=== PATIENT | female | born 1980 | race African-American/Black ===

== ENCOUNTER 2017-05-02 12:10 | Emergency (ER) | payer OTHER ==
[~2017-05-02] VITALS: Ht 165.1 cm; Wt 117.0 kg
[~2017-05-02 12:10] MED LIST: ACTOS15 MG PO; ACTOS30 MG PO; BYETTA10 SC; BYETTA5 MCG SC; HUMULIN R1 M1 SC; INSULIN SY0.5 MG/38 SC; LANTUS100 MG/ML SC; LEVEMIR FLEXPEN SC; LISINOPRIL10 MG PO; METFORMIN1000 MG PO; METFORMIN500 MG PO; NOVOLOG MIX100 U/ML SC; PEN NEEDLES31 GX6MM SC; TUBERSOL5 MG/0.1 M ID; ULTRAM50 M1 PO; VICTOZA18 MG/3 ML SC
[2017-05-02 13:00] LABS: HEMATOCRIT 37.1 % (37.0-47.0); HEMOGLOBIN 12.8 g/dl (12.0-16.0); IMMATURE GRANULOCYTES 0.3 % (0.0-1.0); MEAN CELL VOLUME 78.3 fL CALC (80.0-100.0); MEAN CORPUSCULAR HGB CONC 34.5 g/L CALC (32.0-36.0); NEUT# 5.63 thou/uL (2.00-7.15); RED BLOOD COUNT 4.74 mill/uL (4.20-5.60); RED CELL DISTRI WIDTH 14.2 % (11.5-15.5)
[2017-05-02 13:11] LABS: ALBUMIN 3.8 g/dL (3.2-5.0); ALKALINE PHOSPHATASE 84 u/l (38-126); ANION GAP 13 (6-22 (CALC)); BILIRUBIN, TOTAL 0.6 mg/dL (0.0-1.4); BUN 6 mg/dL (7-17); BUN/CREATININE RATIO 10 (12-20 (CALC)); CALCIUM 8.7 mg/dL (8.4-10.2); CARBON DIOXIDE 27 mmol/l (22-30); CHLORIDE 97 mmol/l (95-108); CREATININE 0.6 mg/dL (0.5-1.0); GFR > 60 ML/MIN (>=60 (CALC)); GFR FOR AFR.AMER. > 60 ML/MIN (>=60 (CALC)); POTASSIUM 4.1 mmol/l (3.5-5.1); SGOT/AST 25 u/l (14-36); SGPT/ALT 35 u/l (9-52); SODIUM 133 mmol/l (137-146)
[2017-05-02 13:18] LABS: GLUCOSE 464 mg/dL (65-105)
[2017-05-02] MEDS ORDERED: LANTUS100 UNIT/M SC (14:01)
[2017-05-02] MEDS ORDERED: METFORMIN1000 MG PO (14:01)
[2017-05-02] MEDS ORDERED: LISINOPRIL10 MG PO (14:01)
[2017-05-02 14:16] VITALS: BP 124/85
== END 2017-05-02 14:20 | disposition home or self-care (01) | DRG 639 ==
LOC: ED 12:10 → ED-I 12:42 → ED 12:42 → ED-I 13:13 → ED 14:20
PROVIDERS: Emergency Medicine
DX: E11.65 Type 2 diabetes mellitus with hyperglycemia (principal); Z91.14 Patient's other noncompliance with medication regimen; Z79.4 Long term (current) use of insulin; Z79.84 Long term (current) use of oral hypoglycemic drugs

== ENCOUNTER 2018-08-10 10:48 | Emergency (ER) | payer OTHER ==
[~2018-08-10] VITALS: Ht 165.1 cm; Wt 114.0 kg
[~2018-08-10 10:48] MED LIST changes: +LANTUS100 UNIT/M SC
[2018-08-10] MEDS ORDERED: LISINOPRIL5 MG PO (11:08)
[2018-08-10] MEDS ORDERED: NOVOLOG100 UNIT/M SC (11:08)
[2018-08-10] MEDS ORDERED: LANTUS100 UNIT/M SC (11:09)
[2018-08-10 11:15] LABS: HEMATOCRIT 34.9 % (37.0-47.0); HEMOGLOBIN 11.9 g/dl (12.0-16.0); IMMATURE GRANULOCYTES 0.3 % (0.0-5.0); MEAN CORPUSCULAR HGB 27.3 pG CALC (26.0-32.0); MEAN CORPUSCULAR HGB CONC 34.1 g/L CALC (32.0-36.0); NEUT# 4.68 thou/uL (2.00-7.15); RED BLOOD COUNT 4.36 mill/uL (4.20-5.60); RED CELL DISTRI WIDTH 14.6 % (11.5-15.5)
[2018-08-10 11:31] LABS: ALBUMIN 3.7 g/dL (3.2-5.0); ALKALINE PHOSPHATASE 64 u/l (38-126); ANION GAP 11 (6-22 (CALC)); BILIRUBIN, TOTAL 0.7 mg/dL (0.0-1.4); BUN 12 mg/dL (7-17); BUN/CREATININE RATIO 17 (12-20 (CALC)); CARBON DIOXIDE 29 mmol/l (22-30); CHLORIDE 103 mmol/l (95-108); CREATININE 0.7 mg/dL (0.5-1.0); GFR > 60 ML/MIN (>=60 (CALC)); GFR FOR AFR.AMER. > 60 ML/MIN (>=60 (CALC)); POTASSIUM 4.6 mmol/l (3.5-5.1); SGOT/AST 20 u/l (14-36); SODIUM 139 mmol/l (137-146); TOTAL PROTEIN 7.2 g/dL (6.3-8.2)
[2018-08-10 12:17] LABS: URINE BILIRUBIN - DIPSTICK NEGATIVE (NEGATIVE); URINE BLOOD DIPSTICK NEGATIVE (NEGATIVE); URINE COLOR YELLOW; URINE GLUCOSE - DIPSTICK NEGATIVE (NEGATIVE); URINE KETONE NEGATIVE (NEGATIVE); URINE NITRITE - DIPSTICK NEGATIVE (Negative); URINE PROTEIN - DIPSTICK NEGATIVE (NEG-TRACE); URINE SPECIFIC GRAVITY 1.015
[2018-08-10 12:18] LABS: URINE CLARITY SL CLOUDY; URINE LEUK ESTERASE SMALL (NEGATIVE)
[2018-08-10 12:19] LABS: URINE BACTERIA FEW hpf; URINE EPITHELIAL CELLS FEW EPI/hpf (0-FEW)
[2018-08-10 12:20] LABS: BARBITURATES NEGATIVE (NEGATIVE); COCAINE NEGATIVE (NEGATIVE); METHADONE NEGATIVE (NEGATIVE); OXCYCODONE NEGATIVE (NEGATIVE); TETRAHYDROCANNABIONOL NEGATIVE (NEGATIVE); TRICYLIC ANTIDEPRESSANTS NEGATIVE (NEGATIVE)
[2018-08-10] MEDS ORDERED: FLEXERIL PO (12:25)
[2018-08-10] MEDS ORDERED: ULTRAM50 MG PO (12:25)
[2018-08-10] MEDS ORDERED: TORADOL PO (12:25)
[2018-08-10 12:31] VITALS: BP 133/85
== END 2018-08-10 12:40 | disposition home or self-care (01) ==
LOC: ED 10:48
PROVIDERS: Emergency Medicine
DX: M47.22 Other spondylosis with radiculopathy, cervical region (principal); M79.602 Pain in left arm; R20.2 Paresthesia of skin

== ENCOUNTER 2019-08-18 23:38 | Emergency (ER) | payer OTHER ==
[~2019-08-18] VITALS: Ht 165.1 cm; Wt 118.0 kg
[~2019-08-18 23:38] MED LIST changes: +FLEXERIL PO; +LISINOPRIL5 MG PO; +NOVOLOG100 UNIT/M SC; +TORADOL PO; +ULTRAM50 MG PO
[2019-08-19] MEDS ORDERED: CORTISPORIN OTI10 M2 AD (00:07)
[2019-08-19 01:18] VITALS: BP 145/85
== END 2019-08-19 01:18 | disposition home or self-care (01) ==
LOC: ED 23:38
DX: H60.91 Unspecified otitis externa, right ear (principal); E11.9 Type 2 diabetes mellitus without complications; H92.01 Otalgia, right ear; Z79.4 Long term (current) use of insulin

== ENCOUNTER 2020-11-16 15:27 | Inpatient (IN) | payer OTHER ==
[~2020-11-16] VITALS: Ht 165.1 cm; Wt 108.0 kg
[~2020-11-16 15:27] MED LIST changes: +CORTISPORIN OTI10 M2 AD
[2020-11-16 16:02] LABS: HEMATOCRIT 29.7 % (37.0-47.0); HEMOGLOBIN 8.9 g/dl (12.0-16.0); IMMATURE GRANULOCYTES 0.3 % (0.0-5.0); MEAN CELL VOLUME 62.3 fL CALC (80.0-100.0); MEAN CORPUSCULAR HGB 18.7 pG CALC (26.0-32.0); NEUT# 11.58 thou/uL (2.00-7.15); RED BLOOD COUNT 4.77 mill/uL (4.20-5.60); RED CELL DISTRI WIDTH 20.2 % (11.5-15.5)
[2020-11-16 16:23] LABS: ANION GAP 12 (6-22 (CALC)); BUN 11 mg/dL (7-17); BUN/CREATININE RATIO 14 (12-20 (CALC)); CARBON DIOXIDE 28 mmol/l (22-30); CHLORIDE 93 mmol/l (95-108); CREATININE 0.8 mg/dL (0.5-1.0); GFR > 60 ML/MIN (>=60 (CALC)); GFR FOR AFR.AMER. > 60 ML/MIN (>=60 (CALC)); POTASSIUM 3.9 mmol/l (3.5-5.1)
[2020-11-16 16:27] LABS: SODIUM 129 mmol/l (137-146)
[2020-11-16 21:43] VITALS: BP 140/89
[2020-11-17 04:30] VITALS: BP 135/90
[2020-11-17 05:10] LABS: HEMATOCRIT 26.1 % (37.0-47.0); HEMOGLOBIN 7.9 g/dl (12.0-16.0); MEAN CELL VOLUME 62.1 fL CALC (80.0-100.0); MEAN CORPUSCULAR HGB 18.8 pG CALC (26.0-32.0); MEAN CORPUSCULAR HGB CONC 30.3 g/dL CAL (32.0-36.0); RED CELL DISTRI WIDTH 19.9 % (11.5-15.5)
[2020-11-17 05:14] LABS: PLATELET COUNT 507 thou/uL (130-400)
[2020-11-17 05:35] LABS: ANION GAP 10 (6-22 (CALC)); BUN 7 mg/dL (7-17); BUN/CREATININE RATIO 12 (12-20 (CALC)); CARBON DIOXIDE 25 mmol/l (22-30); CHLORIDE 98 mmol/l (95-108); CREATININE 0.5 mg/dL (0.5-1.0); GFR > 60 ML/MIN (>=60 (CALC)); GFR FOR AFR.AMER. > 60 ML/MIN (>=60 (CALC)); MAGNESIUM 1.9 mg/dL (1.6-2.3); POTASSIUM 4.3 mmol/l (3.5-5.1); SODIUM 129 mmol/l (137-146)
[2020-11-17 07:47] VITALS: BP 131/77
[2020-11-17 15:00] VITALS: BP 113/76
[2020-11-17 20:00] VITALS: BP 112/65
[2020-11-18 04:00] VITALS: BP 112/71; BP 161/86
[2020-11-18 05:23] LABS: ANION GAP 6 (6-22 (CALC)); BUN 2 mg/dL (7-17); BUN/CREATININE RATIO 4 (12-20 (CALC)); CARBON DIOXIDE 27 mmol/l (22-30); CHLORIDE 104 mmol/l (95-108); CREATININE 0.5 mg/dL (0.5-1.0); GFR > 60 ML/MIN (>=60 (CALC)); GFR FOR AFR.AMER. > 60 ML/MIN (>=60 (CALC)); POTASSIUM 3.7 mmol/l (3.5-5.1); SODIUM 133 mmol/l (137-146)
[2020-11-18 05:48] LABS: HEMATOCRIT 25.1 % (37.0-47.0); HEMOGLOBIN 7.4 g/dl (12.0-16.0); MEAN CELL VOLUME 62.4 fL CALC (80.0-100.0); MEAN CORPUSCULAR HGB 18.4 pG CALC (26.0-32.0); MEAN CORPUSCULAR HGB CONC 29.5 g/dL CAL (32.0-36.0); RED BLOOD COUNT 4.02 mill/uL (4.20-5.60); RED CELL DISTRI WIDTH 20.3 % (11.5-15.5)
[2020-11-18 06:45] VITALS: BP 140/87
[2020-11-18 15:22] VITALS: BP 131/85
[2020-11-18 20:58] VITALS: BP 121/79
[2020-11-19 05:02] VITALS: BP 122/77
[2020-11-19 08:30] VITALS: BP 120/82
[2020-11-19 15:28] VITALS: BP 127/80
[2020-11-19 19:36] VITALS: BP 127/85
[2020-11-19 23:00] VITALS: BP 128/66
[2020-11-20 04:38] VITALS: BP 130/67
[2020-11-20 05:34] LABS: HEMATOCRIT 23.8 % (37.0-47.0); HEMOGLOBIN 7.1 g/dl (12.0-16.0); MEAN CORPUSCULAR HGB 18.5 pG CALC (26.0-32.0); MEAN CORPUSCULAR HGB CONC 29.8 g/dL CAL (32.0-36.0); RED BLOOD COUNT 3.84 mill/uL (4.20-5.60); RED CELL DISTRI WIDTH 20.5 % (11.5-15.5)
[2020-11-20 05:58] LABS: ANION GAP 8 (6-22 (CALC)); BUN 2 mg/dL (7-17); BUN/CREATININE RATIO 4 (12-20 (CALC)); CARBON DIOXIDE 25 mmol/l (22-30); CHLORIDE 110 mmol/l (95-108); CREATININE 0.6 mg/dL (0.5-1.0); GFR > 60 ML/MIN (>=60 (CALC)); GFR FOR AFR.AMER. > 60 ML/MIN (>=60 (CALC)); POTASSIUM 3.6 mmol/l (3.5-5.1); SODIUM 139 mmol/l (137-146)
[2020-11-20 07:20] VITALS: BP 138/80
[2020-11-20 15:00] VITALS: BP 155/65
[2020-11-20 15:50] LABS: HEMATOCRIT 26.3 % (37.0-47.0); HEMOGLOBIN 7.9 g/dl (12.0-16.0); MEAN CELL VOLUME 62.2 fL CALC (80.0-100.0); MEAN CORPUSCULAR HGB 18.7 pG CALC (26.0-32.0); RED BLOOD COUNT 4.23 mill/uL (4.20-5.60)
[2020-11-20 16:04] LABS: ANION GAP 8 (6-22 (CALC)); BUN 3 mg/dL (7-17); BUN/CREATININE RATIO 5 (12-20 (CALC)); CARBON DIOXIDE 26 mmol/l (22-30); CHLORIDE 105 mmol/l (95-108); CREATININE 0.7 mg/dL (0.5-1.0); GFR > 60 ML/MIN (>=60 (CALC)); GFR FOR AFR.AMER. > 60 ML/MIN (>=60 (CALC)); POTASSIUM 3.9 mmol/l (3.5-5.1); SODIUM 136 mmol/l (137-146)
[2020-11-20 19:00] VITALS: BP 144/110
[2020-11-21 04:00] VITALS: BP 135/91
[2020-11-21 07:20] VITALS: BP 148/90
[2020-11-21] MEDS ORDERED: DOXYCYCL HYC100 MG PO (13:03)
[2020-11-21 14:00] VITALS: BP 160/56
[2020-11-21 14:15] VITALS: BP 158/31
[2020-11-21 14:30] VITALS: BP 144/82
[2020-11-21] MEDS ORDERED: HYDROCO/APAP1 TA9 PO (14:40)
[2020-11-21] MEDS ORDERED: LANTUS100 UNIT/M SC (14:40)
== END 2020-11-21 15:45 | disposition home or self-care (01) | DRG 603 ==
LOC: ED 15:27 → ED-I 18:17 → ED 18:38 → ED-I 18:39 → MS2 20:18
PROVIDERS: Family Medicine; Nurse Practitioner; ADMIT Internal Medicine; ATTEND Internal Medicine
PROC: 0HB1XZZ Excision of Face Skin, External Approach (ICD-10-PCS; principal; 2020-11-21)
DX: L02.01 Cutaneous abscess of face (principal); L03.211 Cellulitis of face; E11.65 Type 2 diabetes mellitus with hyperglycemia; I10 Essential (primary) hypertension; D64.9 Anemia, unspecified; B95.62 Methicillin resistant Staphylococcus aureus infection as the cause of diseases classified elsewhere; T38.3X6A Underdosing of insulin and oral hypoglycemic [antidiabetic] drugs, initial encounter; Z91.128 Patient's intentional underdosing of medication regimen for other reason; Z79.4 Long term (current) use of insulin; Z20.822 Contact with and (suspected) exposure to COVID-19
CPT/HCPCS: J0131; J1650; J3370

== ENCOUNTER 2021-07-02 10:25 | Emergency (ER) | payer OTHER ==
[~2021-07-02] VITALS: Ht 165.1 cm; Wt 109.0 kg
[~2021-07-02 10:25] MED LIST changes: +DOXYCYCL HYC100 MG PO; +HYDROCO/APAP1 TA9 PO
[2021-07-02 11:15] LABS: BASO% 0 % (0-3); EOS% 1 % (0-8); HEMATOCRIT 24.2 % (37.0-47.0); HEMOGLOBIN 7.3 g/dl (12.0-16.0); IMMATURE GRANULOCYTES 0.1 % (0.0-5.0); LYMPH% 22 % (15-41); MEAN CELL VOLUME 60.3 fL CALC (80.0-100.0); MEAN CORPUSCULAR HGB 18.2 pG CALC (26.0-32.0); MEAN CORPUSCULAR HGB CONC 30.2 g/dL CAL (32.0-36.0); MONO% 5 % (2-13); NEUT# 5.08 thou/uL (2.00-7.15); NEUT% 71 % (42-76); PLATELET COUNT 431 thou/uL (130-400); RED BLOOD COUNT 4.01 mill/uL (4.20-5.60); RED CELL DISTRI WIDTH 20.6 % (11.5-15.5)
[2021-07-02 11:25] LABS: ALBUMIN 3.5 g/dL (3.2-5.0); ALKALINE PHOSPHATASE 74 u/l (38-126); ANION GAP 8 (6-22 (CALC)); BILIRUBIN, TOTAL 0.5 mg/dL (0.0-1.4); BUN 9 mg/dL (7-17); BUN/CREATININE RATIO 10 (12-20 (CALC)); CARBON DIOXIDE 27 mmol/l (22-30); CHLORIDE 100 mmol/l (95-108); CREATININE 0.8 mg/dL (0.5-1.0); GFR > 60 ML/MIN (>=60 (CALC)); GFR FOR AFR.AMER. > 60 ML/MIN (>=60 (CALC)); POTASSIUM 3.9 mmol/l (3.5-5.1); SGOT/AST 24 u/l (14-36); SODIUM 130 mmol/l (137-146)
[2021-07-02 13:43] VITALS: BP 120/87
== END 2021-07-02 13:50 | disposition home or self-care (01) ==
LOC: ED 10:25
PROVIDERS: Family Medicine
DX: E11.65 Type 2 diabetes mellitus with hyperglycemia (principal); D50.9 Iron deficiency anemia, unspecified; I10 Essential (primary) hypertension; E66.9 Obesity, unspecified; T38.3X6A Underdosing of insulin and oral hypoglycemic [antidiabetic] drugs, initial encounter; Z91.138 Patient's unintentional underdosing of medication regimen for other reason; Z79.4 Long term (current) use of insulin

== ENCOUNTER 2022-12-09 14:45 | Emergency (ER) | payer OTHER ==
[2022-12-09] VITALS (20 sets, daily range): BP systolic 126–154; BP diastolic 75–101
[~2022-12-09] VITALS: Ht 165.1 cm; Wt 100.0 kg
[2022-12-09 15:23] LABS: BASO% 0.3 % (0-3); EOS% 1.6 % (0-8); HEMATOCRIT 22.7 % (37.0-47.0); IMMATURE GRANULOCYTES 0.1 % (0.0-5.0); LYMPH% 21.1 % (15-41); MEAN CELL VOLUME 57.5 fL CALC (80.0-100.0); MEAN CORPUSCULAR HGB 16.2 pG CALC (26.0-32.0); MEAN CORPUSCULAR HGB CONC 28.2 g/dL CAL (32.0-36.0); MONO% 5.4 % (2-13); NEUT# 6.27 thou/uL (2.00-7.15); NEUT% 71.5 % (42-76); RED BLOOD COUNT 3.95 mill/uL (4.20-5.60); RED CELL DISTRI WIDTH 22.2 % (11.5-15.5)
[2022-12-09 15:27] LABS: HEMOGLOBIN 6.4 g/dl (12.0-16.0)
[2022-12-09 15:32] LABS: ALBUMIN 3.8 g/dL (3.2-5.0); ALKALINE PHOSPHATASE 90 u/l (38-126); ANION GAP 14 (6-22 (CALC)); BILIRUBIN, TOTAL 0.3 mg/dL (0.02-1.3); BUN 7 mg/dL (7-17); BUN/CREATININE RATIO 8 (12-20 (CALC)); CARBON DIOXIDE 22 mmol/l (22-30); CHLORIDE 102 mmol/l (95-108); CREATININE 0.8 mg/dL (0.5-1.0); GFR FOR AFR.AMER. > 60 ML/MIN (>=60 (CALC)); GFR OTHER RACES > 60 ML/MIN (>=60 (CALC)); POTASSIUM 3.8 mmol/l (3.5-5.1); SGOT/AST 31 u/l (14-36); SODIUM 135 mmol/l (137-146); TOTAL PROTEIN 7.4 g/dL (6.3-8.2)
[2022-12-09] MEDS ORDERED: IRON325 M1 PO (17:56)
== END 2022-12-09 20:45 | disposition home or self-care (01) ==
LOC: ED 14:45
PROVIDERS: Family Medicine
DX: D64.9 Anemia, unspecified (principal); I10 Essential (primary) hypertension; E11.9 Type 2 diabetes mellitus without complications; Z79.4 Long term (current) use of insulin; Z79.84 Long term (current) use of oral hypoglycemic drugs
CPT/HCPCS: P9016

== ENCOUNTER 2024-04-14 13:02 | Emergency (ER) | payer OTHER ==
[2024-04-14] VITALS (7 sets, daily range): BP systolic 135–216; BP diastolic 93–127
[~2024-04-14] VITALS: Ht 165.1 cm; Wt 110.0 kg
[~2024-04-14 13:02] MED LIST changes: +CHROMAGEN1 CAP PO; +IRON325 M1 PO; +LANTUS100 UNIT SC; +LEVAQUIN750 M1 PO; +METFORMIN HCL1000 MG PO; +NOVOLOG100 UNIT SC
[2024-04-14 13:55] LABS: BASO% 0.2 % (0-3); EOS% 1.1 % (0-8); HEMATOCRIT 26.6 % (37.0-47.0); HEMOGLOBIN 8.4 g/dl (12.0-16.0); LYMPH% 23.2 % (15-41); MEAN CELL VOLUME 64.1 fL CALC (80.0-100.0); MEAN CORPUSCULAR HGB 20.2 pG CALC (26.0-32.0); MEAN CORPUSCULAR HGB CONC 31.6 g/dL CAL (32.0-36.0); MONO% 5.8 % (2-13); NEUT# 5.64 thou/uL (2.00-7.15); NEUT% 69.7 % (42-76); RED BLOOD COUNT 4.15 mill/uL (4.20-5.60); RED CELL DISTRI WIDTH 17.7 % (11.5-15.5)
[2024-04-14] MEDS ORDERED: SODIUM CHLORIDE 0.9% 1,000 ML IV ONE (13:55)
[2024-04-14] MEDS ORDERED: KETOROLAC TROMETHAMINE 30 MG/ML SDV IV ONE (13:55)
[2024-04-14] MEDS ORDERED: ONDANSETRON HCl 4 MG/2 ML SDV IV ONE (13:55)
[2024-04-14 14:04] LABS: CREATININE 1.2 mg/dL (0.5-1.0); POTASSIUM 3.7 mmol/l (3.5-5.1); TOTAL PROTEIN 7.8 g/dL (6.3-8.2)
[2024-04-14 14:05] LABS: ALBUMIN 3.7 g/dL (3.2-5.0); BILIRUBIN, TOTAL 0.8 mg/dL (0.02-1.3)
[2024-04-14] MEDS ORDERED: LABETALOL HCL 100 MG/20 ML VIAL IV ONE (15:30)
[2024-04-14] MEDS ORDERED: LEVSIN0.125 M1 PO (16:37)
[2024-04-14] MEDS ORDERED: DULCOLAX5 MG PO (16:37)
== END 2024-04-14 17:11 | disposition home or self-care (01) ==
LOC: ED 13:02
PROVIDERS: Family Medicine
DX: K59.00 Constipation, unspecified (principal); E11.9 Type 2 diabetes mellitus without complications; Z79.4 Long term (current) use of insulin; Z79.84 Long term (current) use of oral hypoglycemic drugs
CPT/HCPCS: Q9967

== ENCOUNTER 2024-10-01 23:04 | Emergency (ER) | payer SELFPAY ==
[~2024-10-01] VITALS: Ht 165.1 cm; Wt 100.0 kg
[~2024-10-01 23:04] MED LIST changes: +DULCOLAX5 MG PO; +LEVSIN0.125 M1 PO
[2024-10-01 23:31] VITALS: BP 117/61
[2024-10-01 23:36] LABS: BASO% 0.1 % (0-3); EOS% 0.6 % (0-8); IMMATURE GRANULOCYTES 0.1 % (0.0-5.0); LYMPH% 21.4 % (15-41); MEAN CELL VOLUME 61.6 fL CALC (80.0-100.0); MEAN CORPUSCULAR HGB 18.6 pG CALC (26.0-32.0); MEAN CORPUSCULAR HGB CONC 30.2 g/dL CAL (32.0-36.0); MONO% 11.6 % (2-13); NEUT# 4.5 thou/uL (2.00-7.15); NEUT% 66.2 % (42-76); RED BLOOD COUNT 3.23 mill/uL (4.20-5.60); RED CELL DISTRI WIDTH 19.2 % (11.5-15.5)
[2024-10-01 23:45] VITALS: BP 125/69
[2024-10-01 23:58] LABS: ALBUMIN 3.5 g/dL (3.2-5.0); CREATININE 1.5 mg/dL (0.5-1.0); POTASSIUM 4.1 mmol/l (3.5-5.1); TOTAL PROTEIN 6.9 g/dL (6.3-8.2)
[2024-10-02] VITALS: BP 111/46
[2024-10-02 00:01] LABS: BILIRUBIN, TOTAL 0.4 mg/dL (0.02-1.3)
[2024-10-02 00:06] LABS: HEMATOCRIT 19.9 % (37.0-47.0)
[2024-10-02 00:15] VITALS: BP 105/51
[2024-10-02] MEDS ORDERED: [UNRECOGNIZED DRUG - OTHER] PO (00:29)
[2024-10-02 00:31] VITALS: BP 107/42
[2024-10-02 00:45] VITALS: BP 107/52
[2024-10-02 00:54] VITALS: BP 107/52
== END 2024-10-02 01:16 | disposition home or self-care (01) | DRG 812 ==
LOC: ED 23:04
PROVIDERS: Family Medicine
DX: D50.0 Iron deficiency anemia secondary to blood loss (chronic) (principal); E11.9 Type 2 diabetes mellitus without complications; T45.4X6A Underdosing of iron and its compounds, initial encounter; Z91.128 Patient's intentional underdosing of medication regimen for other reason; Z79.84 Long term (current) use of oral hypoglycemic drugs; Z79.4 Long term (current) use of insulin; Z20.822 Contact with and (suspected) exposure to COVID-19

== ENCOUNTER 2025-01-01 18:54 | Emergency (ER) | payer SELFPAY ==
[~2025-01-01] VITALS: Ht 165.1 cm; Wt 106.0 kg
[~2025-01-01 18:54] MED LIST changes: +[UNRECOGNIZED DRUG - OTHER] PO
[2025-01-01] MEDS ORDERED: AMOXICILLIN & POT CLAVULANATE 875 MG/TAB PO ONE (19:35)
[2025-01-01] MEDS ORDERED: DECADRON4 MG PO (19:36)
[2025-01-01] MEDS ORDERED: MECLIZINE25 M1 PO (19:36)
[2025-01-01] MEDS ORDERED: AMOX/K CLAV875 M1 PO (19:36)
[2025-01-01 19:41] VITALS: BP 178/106
== END 2025-01-01 19:43 | disposition home or self-care (01) | DRG 153 ==
LOC: ED 18:54
DX: J32.9 Chronic sinusitis, unspecified (principal); E11.9 Type 2 diabetes mellitus without complications; Z79.4 Long term (current) use of insulin; Z79.84 Long term (current) use of oral hypoglycemic drugs